=== PATIENT | male | born 1940 | race Caucasian/White ===

== ENCOUNTER → 2021-02-14 | Day surgery (SDC) | payer MEDICARE, OTHER ==
[~2021-02-14] VITALS: Ht 182.9 cm; Wt 97.5 kg
[~2021-02-14] MED LIST: ACETAMINOPHEN-1 EAC2 PO; ACETAMINOPHEN500 M1 PO; CLARITIN10 MG PO; COLESTID1 GM PO; HYDROCHLOROTHIA50 MG PO; K-DUR20 MEQ PO; METOPROLOL TAR100 MG PO; METOPROLOL-HCT1 EAC1 PO; NORCO 5-325 TA1 EACH PO; ONDANSETRON ODT8 MG PO; PRINIVIL20 MG PO; PROTONIX 40MG T40 MG PO; TAMSULOSIN HCL0.4 MG PO; TRAMADOL HCL50 MG PO; VITAMIN B-121000 MC1 PO; ZESTRIL40 MG PO
[2021-02-14 10:27] LABS: HCT 40.2 % (42.0-52.0); HGB 13.6 g/dl (13.2-18.0); MCH 30.1 pg (25.0-31.0); MCHC 33.8 g/dL (32.0-36.0); MCV 88.9 fL (78.0-100.0); MPV 10.6 fL (6.0-9.5); RBC 4.52 M/uL (4.70-6.00); RDW 14.5 % (11.5-14.0); WBC 8.1 K/uL (4.0-10.5)
[2021-02-14 10:48] LABS: ALBUMIN 3.7 g/dL (3.4-5.0); BILIRUBIN - TOTAL 0.8 mg/dL (0.2-1.0); BUN/CREAT RATIO (CALC) 14.5 RATIO; CREATININE 1.38 mg/dL (0.67-1.17); GLOBULIN (CALCULATION) 3.4 g/dL; POTASSIUM 3.7 mmol/L (3.5-5.1); TOTAL PROTEIN 7.1 g/dL (6.4-8.2)
== END | disposition home or self-care (01) ==
LOC: FAS 09:28
PROVIDERS: Surgery
DX: K80.10 Calculus of gallbladder with chronic cholecystitis without obstruction (principal); I10 Essential (primary) hypertension; F17.219 Nicotine dependence, cigarettes, with unspecified nicotine-induced disorders; Z91.040 Latex allergy status; Z88.6 Allergy status to analgesic agent; Z82.3 Family history of stroke
CPT/HCPCS: 36415; 74300; 80053; 93005; C1758; J1100; J2250; J2405; J2704; J2710; J3010; J3490; J7120; Q9967

== ENCOUNTER 2021-05-14 09:30 | Day surgery (SDCO) | payer MEDICARE, OTHER ==
[~2021-05-14] VITALS: Ht 182.9 cm; Wt 94.0 kg
[~2021-05-14 09:30] MED LIST changes: -COLESTID1 GM PO; -VITAMIN B-121000 MC1 PO
[2021-05-14 10:58] LABS: BILIRUBIN NEGATIVE (NEGATIVE); BLOOD TRACE-INTACT Ery/uL (NEGATIVE); CLARITY CLEAR (CLEAR); COLOR YELLOW (YELLOW); GLUCOSE (U) NORMAL (NORMAL); LEUKOCYTES NEGATIVE Leu/uL (NEGATIVE); NITRITE NEGATIVE (NEGATIVE); PROTEIN NEGATIVE (NEGATIVE); UROBILINOGEN 0.2 mg/dL (0.2-1.0); pH 5.5 (5.0-9.0)
[2021-05-14 11:00] LABS: BASOPHIL 0.3 % (0-2); EOSINOPHIL 0.6 % (0-7); HCT 41.1 % (42.0-52.0); HGB 13.4 g/dl (13.2-18.0); LYMPHOCYTE 17.6 % (15-48); MCH 29.6 pg (25.0-31.0); MCHC 32.6 g/dL (32.0-36.0); MCV 90.7 fL (78.0-100.0); MONOCYTE 7.1 % (0-12); MPV 11.3 fL (6.0-9.5); NEUTROPHIL 73.8 % (41-80); NRBC 0; PLT 189 K/uL (150-400); RBC 4.53 M/uL (4.70-6.00); RDW 15.2 % (11.5-14.0); WBC 16.2 K/uL (4.0-10.5)
[2021-05-14 11:05] LABS: SQUAMOUS EPITHELIAL CELLS RARE; URINARY RBC RARE; URINARY WBC RARE
[2021-05-14 11:11] LABS: PTT 27.3 SECONDS (24.4-34.7)
[2021-05-14 11:12] LABS: INR 1.08 (0.9-1.2); PROTHROMBIN TIME 13.4 SECONDS (11.8-13.4)
[2021-05-14 11:12] LABS: ALBUMIN 3.9 g/dL (3.4-5.0); BILIRUBIN - TOTAL 0.7 mg/dL (0.2-1.0); CREATININE 1.82 mg/dL (0.67-1.17); GLOBULIN (CALCULATION) 3.9 g/dL; MAGNESIUM 1.3 mg/dL (1.8-2.4); POTASSIUM 4.1 mmol/L (3.5-5.1); TOTAL PROTEIN 7.8 g/dL (6.4-8.2)
[2021-05-14] MEDS ORDERED: VITAMIN B-121000 MC1 PO (14:14)
[2021-05-15 04:55] LABS: CREATININE 1.53 mg/dL (0.67-1.17); MAGNESIUM 1.6 mg/dL (1.8-2.4)
[2021-05-15 05:12] LABS: BASOPHIL 0.2 % (0-2); EOSINOPHIL 0.8 % (0-7); HCT 35.7 % (42.0-52.0); HGB 11.7 g/dl (13.2-18.0); LYMPHOCYTE 21.7 % (15-48); MCH 29.5 pg (25.0-31.0); MCHC 32.8 g/dL (32.0-36.0); MCV 89.9 fL (78.0-100.0); MONOCYTE 8.6 % (0-12); MPV 11.6 fL (6.0-9.5); NEUTROPHIL 68.3 % (41-80); NRBC 0; PLT 150 K/uL (150-400); RBC 3.97 M/uL (4.70-6.00); RDW 14.8 % (11.5-14.0); WBC 10.6 K/uL (4.0-10.5)
[2021-05-16 08:33] LABS: BASOPHIL 0.3 % (0-2); HCT 32.6 % (42.0-52.0); HGB 10.6 g/dl (13.2-18.0); LYMPHOCYTE 24.1 % (15-48); MCH 29.1 pg (25.0-31.0); MCHC 32.5 g/dL (32.0-36.0); MCV 89.6 fL (78.0-100.0); MONOCYTE 8.6 % (0-12); MPV 11.3 fL (6.0-9.5); NEUTROPHIL 65.5 % (41-80); NRBC 0; PLT 136 K/uL (150-400); RBC 3.64 M/uL (4.70-6.00); RDW 14.9 % (11.5-14.0); WBC 7.7 K/uL (4.0-10.5)
[2021-05-16 08:58] LABS: BUN/CREAT RATIO (CALC) 10.5 RATIO; CREATININE 1.24 mg/dL (0.67-1.17); POTASSIUM 3.6 mmol/L (3.5-5.1)
[2021-05-16] MEDS ORDERED: COLESTID1 GM PO (09:23)
--- NOTE | 2021-05-16 11:52 | NUR ---
DISCUSSED DISCHARGE INSTRUCTIONS WITH PATIENT. IV REMOVED PRIOR TO DISCHARGE, NO BLEEDING NOTED. FOLLOW UP APPOINTMENTS MADE. PATIENT IN STABLE CONDITION. D/C HOME
== END 2021-05-16 11:20 | disposition home or self-care (01) ==
LOC: FER 09:30 → FMS 12:50 → FER 13:22 → FMS 05-16 11:20
PROVIDERS: Emergency Medicine; ADMIT Internal Medicine
DX: K52.9 Noninfective gastroenteritis and colitis, unspecified (principal); E86.0 Dehydration; N17.9 Acute kidney failure, unspecified; I12.9 Hypertensive chronic kidney disease with stage 1 through stage 4 chronic kidney disease, or unspecified chronic kidney disease; N18.2 Chronic kidney disease, stage 2 (mild); R79.89 Other specified abnormal findings of blood chemistry; M25.512 Pain in left shoulder; M10.9 Gout, unspecified; Z79.899 Other long term (current) drug therapy; Z88.8 Allergy status to other drugs, medicaments and biological substances; Z20.822 Contact with and (suspected) exposure to COVID-19; Z90.49 Acquired absence of other specified parts of digestive tract
CPT/HCPCS: 36415; 73030; 80048; 80053; 81001; 83690; 83735; 84145; 84439; 84443; 84484; 85025; 85610; 85730; 87045; 87046; 87449; G0378; J2405; J3475; J7030; U0002

== ENCOUNTER 2022-05-29 09:11 | Emergency (ER) | payer MEDICARE, OTHER ==
[~2022-05-29 09:11] MED LIST changes: +AZITHROMYCIN250 MG PO; +COLESTID1 GM PO; +VITAMIN B-121000 MC1 PO
[2022-05-29 11:32] LABS: BASOPHIL 0.2 % (0-2); EOSINOPHIL 0.6 % (0-7); HCT 36.5 % (42.0-52.0); HGB 12.7 g/dl (13.2-18.0); LYMPHOCYTE 11.2 % (15-48); MCH 29.1 pg (25.0-31.0); MCHC 34.8 g/dL (32.0-36.0); MCV 83.5 fL (78.0-100.0); MONOCYTE 7.2 % (0-12); MPV 10.5 fL (6.0-9.5); NEUTROPHIL 80.2 % (41-80); NRBC 0; PLT 269 K/uL (150-400); RBC 4.37 M/uL (4.70-6.00); WBC 9.6 K/uL (4.0-10.5)
[2022-05-29 11:32] LABS: BILIRUBIN NEGATIVE (NEGATIVE); BLOOD TRACE-INTACT Ery/uL (NEGATIVE); CLARITY CLEAR (CLEAR); COLOR YELLOW (YELLOW); GLUCOSE (U) NORMAL (NORMAL); LEUKOCYTES NEGATIVE Leu/uL (NEGATIVE); NITRITE NEGATIVE (NEGATIVE); PROTEIN NEGATIVE (NEGATIVE); UROBILINOGEN 0.2 mg/dL (0.2-1.0); pH 5.5 (5.0-9.0)
[2022-05-29 11:43] LABS: ALBUMIN 3.2 g/dL (3.4-5.0); BILIRUBIN - TOTAL 0.4 mg/dL (0.2-1.0); CREATININE 5.87 mg/dL (0.67-1.17); GLOBULIN (CALCULATION) 3.6 g/dL; MAGNESIUM 1.2 mg/dL (1.8-2.4); PHOSPHORUS 6.4 mg/dL (2.6-4.7); TOTAL PROTEIN 6.8 g/dL (6.4-8.2)
[2022-05-29 16:15] LABS: CREATININE 5.32 mg/dL (0.67-1.17)
[2022-05-29 16:17] LABS: MAGNESIUM 1.9 mg/dL (1.8-2.4)
== END 2022-05-30 02:23 | disposition other institution (70) ==
LOC: FER 09:11
PROVIDERS: Emergency Medicine
DX: N17.9 Acute kidney failure, unspecified (principal); I12.9 Hypertensive chronic kidney disease with stage 1 through stage 4 chronic kidney disease, or unspecified chronic kidney disease; N18.9 Chronic kidney disease, unspecified; U07.1 COVID-19; Z28.310 Unvaccinated for COVID-19; Z79.899 Other long term (current) drug therapy
CPT/HCPCS: 36415; 80048; 80053; 81001; 83735; 84100; 85025; J3475; J7030; U0002